=== PATIENT | male | born 1950 | race Caucasian/White ===

== ENCOUNTER → 2020-07-16 | Outpatient (CLI) | payer OTHER ==
[2020-07-16 11:47] LABS: HEMOGLOBIN 15.2 gm/dl (14.0-17.5); RED BLOOD COUNT 4.86 M/UL (4.20-5.50); WHITE BLOOD COUNT 6.3 K/UL (4.5-11.0)
[2020-07-16 12:03] LABS: BUN/CREATININE RATIO 11 (0-10)
[2020-07-18 14:14] LABS: CHOLESTEROL, TOTAL 166 mg/dL (100-199); HDL SIZE 9.3 nm (>=9.2); HDL-C 54 mg/dL (>39); HDL-P (TOTAL) 34.4 umol/L (>=30.5); LARGE HDL-P 5.8 umol/L (>=4.8); LARGE VLDL-P 3.8 nmol/L (<=2.7); LDL SIZE 21.1 nm (>20.5); LDL SIZE 21.1 nm (>=20.8); LDL-C 95 mg/dL (0-99); LDL-P 1083 nmol/L (<1000); LP-IR SCORE 49 (<=45); SMALL LDL-P 313 nmol/L (<=527); TRIGLYCERIDES 94 mg/dL (0-149); VLDL SIZE 49.1 nm (<=46.6)
== END ==
LOC: LAB 10:30
PROVIDERS: Emergency Medicine
DX: Z12.5 Encounter for screening for malignant neoplasm of prostate (principal); I12.9 Hypertensive chronic kidney disease with stage 1 through stage 4 chronic kidney disease, or unspecified chronic kidney disease; N18.2 Chronic kidney disease, stage 2 (mild); R60.0 Localized edema; E78.2 Mixed hyperlipidemia
CPT/HCPCS: 36415; 80053; 84550; 85025; G0103

== ENCOUNTER → 2021-12-09 | Outpatient (CLI) | payer OTHER ==
[2021-12-09 10:14] LABS: HEMOGLOBIN 15.2 gm/dl (14.0-17.5); RED BLOOD COUNT 4.82 M/UL (4.20-5.50); WHITE BLOOD COUNT 6.6 K/UL (4.5-11.0)
[2021-12-09 16:21] LABS: BUN/CREATININE RATIO 21 (0-10)
[2021-12-11 11:14] LABS: CHOLESTEROL, TOTAL 162 mg/dL (100-199); HDL SIZE 9.2 nm (>=9.2); HDL-C 52 mg/dL (>39); HDL-P (TOTAL) 35.1 umol/L (>=30.5); LARGE HDL-P 5.8 umol/L (>=4.8); LARGE VLDL-P 3.7 nmol/L (<=2.7); LDL SIZE 20.9 nm (>20.5); LDL SIZE 20.9 nm (>=20.8); LDL-C 94 mg/dL (0-99); LDL-P 1012 nmol/L (<1000); LP-IR SCORE 52 (<=45); SMALL LDL-P 499 nmol/L (<=527); TRIGLYCERIDES 86 mg/dL (0-149); VLDL SIZE 46.6 nm (<=46.6)
== END ==
LOC: LAB 09:33
PROVIDERS: Emergency Medicine
DX: I12.9 Hypertensive chronic kidney disease with stage 1 through stage 4 chronic kidney disease, or unspecified chronic kidney disease (principal); N18.32 Chronic kidney disease, stage 3b; E78.2 Mixed hyperlipidemia
CPT/HCPCS: 36415; 80053; 80061; 83704; 84443; 85025